=== PATIENT | female | born 1965 | race Caucasian/White ===

== ENCOUNTER → 2016-12-12 | Outpatient (REF) | payer MEDICARE ==
[2016-12-12 12:40] LABS: ALBUMIN 3.3 GM/DL (3.2-5.2); ALKALINE PHOSPHATASE 112 U/L (45-117); ALT/SGPT 17 U/L (12-78); ANION GAP 8 MEQ/L (8-16); AST/SGOT 15 U/L (15-37); BILIRUBIN,TOTAL 0.6 MG/DL (0.2-1.0); BLOOD UREA NITROGEN 12 MG/DL (7-18); CALCIUM LEVEL 8.5 MG/DL (8.5-10.1); CARBON DIOXIDE LEVEL 27 MEQ/L (21-32); CHLORIDE LEVEL 103 MEQ/L (98-107); CHOLESTEROL LEVEL 144 MG/DL (<200); CREATININE FOR GFR 0.89 MG/DL (0.55-1.02); GLOMERULAR FILTRATION RATE > 60.0 (>51); GLUCOSE, FASTING 133 MG/DL (70-105); SODIUM LEVEL 138 MEQ/L (136-145); TRIGLYCERIDES LEVEL 88 MG/DL (<150)
== END ==
LOC: M SFHCPLAZ 08:47
PROVIDERS: ATTEND Nurse Practitioner Adult Health
DX: I87.2 Venous insufficiency (chronic) (peripheral) (principal); E11.9 Type 2 diabetes mellitus without complications; E78.00 Pure hypercholesterolemia, unspecified; E55.9 Vitamin D deficiency, unspecified
CPT/HCPCS: 36415; 80053; 80061; 82043; 82306; 83036; G0463

== ENCOUNTER → 2016-12-15 | Outpatient (CLI) | payer MEDICARE ==
--- NOTE | 2016-12-15 12:57 | REP ---
Clinical: Pain. Technique: AP and lateral views of the left forearm. Findings: No acute fracture dislocation. Skeletal structures, joint spaces, and surrounding soft tissues are normal. Impression: Normal left forearm. Signed by Joseph Medel MD 12/15/2016 12:49 P
== END ==
LOC: M RAD 12:31
PROVIDERS: ATTEND Nurse Practitioner Adult Health
DX: M79.632 Pain in left forearm (principal)

== ENCOUNTER 2017-03-01 09:19 | Emergency (ER) | payer MEDICARE ==
[~2017-03-01] VITALS: Ht 162.6 cm; Wt 134.8 kg
[2017-03-01] MEDS ORDERED: METO50TA2 PO (09:32)
[2017-03-01] MEDS ORDERED: METF1000 PO (09:32)
[2017-03-01] MEDS ORDERED: GABA-282 PO (09:32)
[2017-03-01] MEDS ORDERED: SPIR25TA2 PO (09:32)
[2017-03-01] MEDS ORDERED: LOSA25TA8 PO (09:32)
[2017-03-01] MEDS ORDERED: VITA50003 PO (09:32)
[2017-03-01] MEDS ORDERED: TORS20TA2 PO (09:32)
[2017-03-01] MEDS ORDERED: CIME200T2 PO (09:43)
[2017-03-01] MEDS ORDERED: FAMOTIDINE IV BAG 20 MG in APPROPRIATE DILUENT 1 EA IV ONE (10:15)
[2017-03-01] MEDS ORDERED: methylPREDNISolone INJ 125 MG/2 ML VIAL (J2930) IV ONE (10:15)
[2017-03-01 11:56] LABS: BASO % 0.3 % (0.0-1.0); EOS % 0.3 % (0.0-3.0); LARGE UNSTAINED CELL # 0.1 K/mm3 (0.0-0.4); LARGE UNSTAINED CELL % 0.8 % (0.0-4.0); LYMPH % 9.4 % (24.0-44.0); MEAN CORPUSCULAR HEMOGLOBIN 25.3 pg (27.0-33.0); MEAN CORPUSCULAR HGB CONC 31.6 g/dl (32.0-36.5); MEAN CORPUSCULAR VOLUME 80.2 fl (80.0-96.0); MONO # 0.3 K/mm3 (0.0-0.8); MONO % 3.3 % (0.0-5.0); NEUTROPHILS # 8.3 K/mm3 (1.8-7.7); NEUTROPHILS % 85.9 % (36.0-66.0); PLATELET COUNT, AUTOMATED 282 k/mm3 (150-450); RED CELL DISTRIBUTION WIDTH 13.9 % (11.5-14.5); WHITE BLOOD COUNT 9.6 K/mm3 (4.0-10.0)
[2017-03-01 13:00] LABS: ANION GAP 0 MEQ/L (8-16); BLOOD UREA NITROGEN 10 MG/DL (7-18); CALCIUM LEVEL 8.6 MG/DL (8.5-10.1); CARBON DIOXIDE LEVEL 34 MEQ/L (21-32); CHLORIDE LEVEL 103 MEQ/L (98-107); CREATININE FOR GFR 0.83 MG/DL (0.55-1.02); GLOMERULAR FILTRATION RATE > 60.0 (>51); GLUCOSE, FASTING 120 MG/DL (70-105); POTASSIUM SERUM 4.1 MEQ/L (3.5-5.1); SODIUM LEVEL 137 MEQ/L (136-145)
[2017-03-01] MEDS ORDERED: PRED50TA PO (13:27)
[2017-03-01] MEDS ORDERED: PEPC1TAB4 PO (13:27)
[2017-03-01] MEDS ORDERED: BACT800T5 PO (13:27)
[2017-03-01 13:39] VITALS: BP 158/91
== END 2017-03-01 13:57 | disposition home or self-care (01) ==
LOC: M ED 10:05
DX: L03.116 Cellulitis of left lower limb (principal); L50.9 Urticaria, unspecified; M79.604 Pain in right leg; E11.9 Type 2 diabetes mellitus without complications; I10 Essential (primary) hypertension; Z79.899 Other long term (current) drug therapy; Z79.84 Long term (current) use of oral hypoglycemic drugs
CPT/HCPCS: 36415; 80048; 85025; 85652; 86140; 96374; 96375; 99283; J2930

== ENCOUNTER → 2017-03-14 | Outpatient (REF) | payer MEDICARE ==
[~2017-03-14] MED LIST: BACT800T5 PO; CIME200T2 PO; GABA-282 PO; LOSA25TA8 PO; METF10004 PO; METO50TA7 PO; PEPC1TAB4 PO; PRED50TA PO; SPIR25TA2 PO; TORS20TA2 PO; VITA1CAP40 PO
== END ==
LOC: M SFHCPLAZ 11:37
PROVIDERS: ATTEND Nurse Practitioner Adult Health
DX: E11.9 Type 2 diabetes mellitus without complications (principal); E55.9 Vitamin D deficiency, unspecified